=== PATIENT | female | born 1995 | race Two or more races ===

== ENCOUNTER 2022-04-25 02:24 | Emergency (ER) | payer SELFPAY ==
[~2022-04-25] VITALS: Ht 172.7 cm; Wt 90.7 kg
--- NOTE | 2022-04-25 02:25 | NUR ---
right elbow pain s/p fall. PATIENT HAS PAIN 10/. HAD ALCOHOLIC DRINKS PRIOR TO FALL. AAOX4. ABLE TO MAKE NEEDS KNOWN. PLACED COMFORTABLY IN BED. VITALS CHECKED.
[2022-04-25] MEDS ORDERED: HYDROCODONE/APAP 5/325MG TABLET ONE (02:42)
[2022-04-25] MEDS ORDERED: HYDROCODONE/APAP 5/325MG TABLET PO ONE (03:00)
--- NOTE | 2022-04-25 03:15 | NUR ---
DYNAMOMETER TESTER AT BEDSIDE
--- NOTE | 2022-04-25 03:24 | NUR ---
SEEN BY DR WILSON AT BEDSIDE
[2022-04-25] MEDS ORDERED: MORPHINE SULFATE INJ 4 MG/ML DISP.SYRIN ONE (03:40)
[2022-04-25] MEDS ORDERED: HYDR-3972 PO (03:46)
--- NOTE | 2022-04-25 03:58 | NUR ---
Patient discharged to home in stable condition. Written and verbal after care instructions given. Patient verbalizes understanding of instruction.
[2022-04-25 03:59] VITALS: BP 107/69
[2022-04-25] MEDS ORDERED: MORPHINE SULFATE INJ 2 MG/ML DISP.SYRIN IM ONE (04:00)
--- NOTE | 2022-04-25 04:48 | NUR ---
SPLINTING OF ARM DONE
--- NOTE | 2022-04-25 04:48 | NUR ---
Patient discharged to home in stable condition. Written and verbal after care instructions given. Patient verbalizes understanding of instruction.
== END 2022-04-25 04:49 | disposition home or self-care (01) ==
LOC: ER 02:33
DX: S42.351A Displaced comminuted fracture of shaft of humerus, right arm, initial encounter for closed fracture (principal); W01.0XXA Fall on same level from slipping, tripping and stumbling without subsequent striking against object, initial encounter; Y93.89 Activity, other specified; Y92.89 Other specified places as the place of occurrence of the external cause; Y99.8 Other external cause status
CPT/HCPCS: 99284; 29105; 73070; 73060; 96372; J2270